=== PATIENT | male | born 2000 | race Caucasian/White ===

== ENCOUNTER 2019-02-22 17:21 | Emergency (ER) | payer SELFPAY ==
[2019-02-22 17:39] VITALS: BP 108/84
--- NOTE | 2019-02-22 17:56 | ER Document Report ---
HPI - HPI Patient complains to provider of: possible std exposure Time Seen by Provider: 02/22/19 17:50 Onset: Other Pain Level: Denies Context: 18-year-old male presents to the emergency department with his mother for possible STD exposure. Patient reports that he had sexual intercourse with a female with no protection in August. He just found out that she had an STD. He denies symptoms. Denies penile discharge denies pain with void. Denies fever vomiting diarrhea. Denies testicular pain. He just wants to have it checked out. Associated Symptoms: None Exacerbated by: Denies Relieved by: Denies Similar symptoms previously: No Recently seen / treated by doctor: No Past Medical History - General Information source: Patient - Social History Smoking Status: Never Smoker Chew tobacco use (# tins/day): No Frequency of alcohol use: None Drug Abuse: None Lives with: Family Family History: None Patient has suicidal ideation: No Patient has homicidal ideation: No - Medical History Medical History: Negative Renal/ Medical History: Denies: Hx Peritoneal Dialysis Surgical Hx: Negative Vertical Provider Document - CONSTITUTIONAL Agree With Documented VS: Yes Exam Limitations: No Limitations General Appearance: WD/WN, No Apparent Distress - INFECTION CONTROL TRAVEL OUTSIDE OF THE [place] IN LAST 30 DAYS: No - HEENT HEENT: Atraumatic, Normocephalic - NECK Neck: Supple. negative: Lymphadenopathy-Left, Lymphadenopathy-Right - RESPIRATORY Respiratory: Breath Sounds Normal, No Respiratory Distress - CARDIOVASCULAR Cardiovascular: Regular Rate, Regular Rhythm - GI/ABDOMEN Gastrointestinal: Abdomen Soft, Abdomen Non-Tender - MUSCULOSKELETAL/EXTREMETIES Musculoskeletal/Extremeties: KARINA URBANO - NEURO Level of Consciousness: Awake, Alert, Appropriate Motor/Sensory: No Motor Deficit - DERM Integumentary: Warm, Dry Course - Re-evaluation Re-evalutation: 02/22/19 17:59 This 18-year-old male presents for an STD check. He reports he had sex with a female in August and just found that she has an STD. He denies symptoms. Denies penile discharge denies testicular pain. Patient was educated on process. He was instructed he can wait for the results of his STD test today, or he could be treated prophylactically for an STD, or he could return if the STD is positive. Patient is not having any symptoms. He opted to wait until he is called back if necessary and received antibiotic's at that time. He was provided with the culture nurse information. Dictation of this chart was performed using voice recognition software; therefore, there may be some unintended grammatical errors. - Vital Signs Vital signs: Temp Pulse Resp BP Pulse Ox 97.5 F 91 H 18 108/84 100 02/22/19 17:37 02/22/19 17:37 02/22/19 17:37 02/22/19 17:37 02/22/19 17:37 Discharge - Discharge Clinical Impression: Possible exposure to STD Condition: Stable Disposition: HOME, SELF-CARE Instructions: Chlamydia ([facility]), Gonorrhea ([facility]), [facility] Department Additional Instructions: *You have been evaluated for possible STD exposure *Your STD test is pending. You will be contacted Sunday should you need to come back for treatment. You may contact the culture nurse Sunday through Sunday 8 AM to 4 PM at [phone] for your results if you do not hear from anybody *Follow up with the health department for recheck *Avoid sexual intercourse until follow up *Return to ED for worsening condition, changes, needs
[2019-02-22 18:41] LABS: AMORPHOUS SEDIMENT,URINE TRACE /HPF; APPEARANCE,URINE SLIGHTLY-CLOUDY; BILIRUBIN,URINE NEGATIVE (NEGATIVE); COLOR,URINE YELLOW; GLUCOSE, URINE NEGATIVE (NEGATIVE); KETONES,URINE NEGATIVE (NEGATIVE); LEUKOCYTE ESTERASE,URINE NEGATIVE (NEGATIVE); NITRITE,URINE NEGATIVE (NEGATIVE); PROTEIN,URINE NEGATIVE (NEGATIVE); URINE SPECIFIC GRAVITY 1.023; UROBILINOGEN,URINE NEGATIVE mg/dL (<2.0)
[2019-02-22 20:07] LABS: CHLAM PCR NOT DETECTED (NOT DETECT)
== END 2019-02-22 18:22 | disposition home or self-care (01) ==
LOC: ER 17:21
DX: Z20.2 Contact with and (suspected) exposure to infections with a predominantly sexual mode of transmission (principal)
CPT/HCPCS: 81001; 87491; 87591; 99283